=== PATIENT | male | born 1935 | race Caucasian/White ===

== ENCOUNTER 2021-12-08 02:19 | Inpatient (IN) | payer OTHER ==
[~2021-12-08] VITALS: Ht 172.7 cm; Wt 78.5 kg
[~2021-12-08 02:19] MED LIST: ALFU10TA10 PO; AMLO5TAB4 PO; LOSA100T3 PO; LOVA40TA75 PO
--- NOTE | 2021-12-08 02:23 | NUR ---
Bhakti olmos in [facility] - 12/08/21 at 0427 by SDEDPR ARCHIE Lopez at bedside examining patient.
[2021-12-08] MEDS ORDERED: NITROGLYCERIN 1 INCH (GM) OINT. TP ONE (02:24)
[2021-12-08] MEDS ORDERED: MORPHINE 4 MG INJ. 4 MG/ML VIAL IVP ONE (02:24)
[2021-12-08 02:26] VITALS: BP_SYST 153
--- NOTE | 2021-12-08 02:29 | NUR ---
Placed in room 5 . Placed on monitoring coordinator, blood pressure machine and pulse oximeter. To gown for exam. Side rails up.
[2021-12-08] MEDS ORDERED: ENOXAPARIN SODIUM 80 MG/0.8 ML SYRINGE SUBCUT ONE (02:30)
--- NOTE | 2021-12-08 02:30 | NUR ---
NAM AT BEDSIDE, DR DEL CASTILLO IN ROOM FOR EXAM
--- NOTE | 2021-12-08 02:30 | NUR ---
ER at bedside examining patient.
--- NOTE | 2021-12-08 02:32 | NUR ---
PT WALKS IN WITH WITH C/O ANTERIOR CHEST WALL PAIN FOR 2 DAYS, STATES IT FEELS LIKE ACID REFUX, POOJA HAD IT BEFORE. DENIES ANY SOB. NO FEVERS/CHILLS. SKIN W/D/I. RESP EVEN AND UNLABORED, ON RA @98%. ONLY HISTORY IS HTN AND TAKES MEDS PRESCRIBED. PT SPEAKING IN FULL CLEAR SENTENCES.
[2021-12-08] MEDS ORDERED: ASPIRIN 325 MG TABLET PO ONE (03:00)
[2021-12-08] MEDS ORDERED: ASPIRIN 325 MG TABLET ONE (03:01)
--- NOTE | 2021-12-08 03:02 | NUR ---
CXR AT BEDSIDE.
[2021-12-08 03:34] LABS: BASOPHILS # (AUTO) 0.1 K/uL (0.0-0.2); BASOPHILS % (AUTO) 1.9 % (0.0-2.0); EOSINOPHILS # (AUTO) 0.2 K/uL (0.0-0.4); EOSINOPHILS % (AUTO) 2.5 % (0.0-4.0); HEMOGLOBIN 13.3 g/dL (14.0-18.0); LYMPHOCYTES # (AUTO) 1.5 K/uL (1.0-5.5); LYMPHOCYTES % (AUTO) 20.1 % (20.5-51.5); MEAN CORPUSCULAR HEMOGLOBIN 30 pg (27-31); MEAN CORPUSCULAR HGB CONC 33 % (32-36); MEAN CORPUSCULAR VOLUME 89 fL (79.0-98.0); MONOCYTES # (AUTO) 0.9 K/uL (0.0-1.0); MONOCYTES % (AUTO) 12.3 % (1.7-9.3); NEUTROPHILS # (AUTO) 4.7 K/uL (1.8-7.7); NEUTROPHILS % (AUTO) 63.2 % (40.0-70.0); PLATELET COUNT (AUTO) 198 K/uL (130-430); RED BLOOD CELL COUNT(AUTO) 4.49 MIL/uL (4.2-6.2); RED CELL DISTRIBUTION WIDTH 13.7 % (9.0-15.0); WHITE BLOOD COUNT (AUTO) 7.5 K/uL (4.8-10.8)
[2021-12-08 03:58] LABS: ANION GAP 5 (5-15); CALCIUM 8.1 mg/dL (8.4-11.0); CHLORIDE 105 mmol/L (98-107); CREATININE 1.05 mg/dL (0.55-1.30); GLUCOSE 160 mg/dL (70-99); POTASSIUM 3.7 mmol/L (3.5-5.1); SODIUM SERUM 136 mmol/L (136-145); UREA NITROGEN, BLOOD 17 mg/dL (8-21)
[2021-12-08 04:06] LABS: ALANINE AMINOTRANSFERASE 20 U/L (12-78); ALBUMIN 3.6 g/dL (3.4-4.8); ASPARTATE AMINOTRANSFERASE 17 U/L (10-37); TOTAL BILIRUBIN 0.6 mg/dL (0.0-1.0)
--- NOTE | 2021-12-08 04:23 | NUR ---
COVID SWAB COLLECTED AND SENT TO LAB.
--- NOTE | 2021-12-08 04:23 | NUR ---
PT REPORTS FEEING BETTER, PRESSURE PAIN 2/10 AT THIS TIME. VSS, ON RA @97%.
--- NOTE | 2021-12-08 04:24 | NUR ---
Admit bed requested Patient will be admitted to care of . Admitted to TELE unit. Diagnosis CHEST PAIN Inpatient (Yes or No) YES Observation (Yes or No) NO Orientation concerns or request close to nursing station (Yes or No) NO Covid Status PENDING On vent or bipap NO Isolation requirements NO Needs a sitter NO From Home (Yes or if No enter name of facility) YES Requires Dialysis (Yes or No) NO Med Rec Completed (Yes of No) PENDING
--- NOTE | 2021-12-08 04:24 | NUR ---
ADMITTING ORDERS RECEIVED FROM DR Brenda FIGUEREDO
--- NOTE | 2021-12-08 04:30 | NUR ---
Medication reconciliation completed with information provided by PATIENT. Any prior medication reconciliation on file was reviewed and corrected.
--- NOTE | 2021-12-08 06:12 | NUR ---
DR GAMING AT BEDSIDE.
[2021-12-08] MEDS ORDERED: ONDANSETRON HCL 4 MG/2 ML VIAL IVP PRN (06:15)
[2021-12-08] MEDS ORDERED: NALOXONE HCL 0.4 MG/ML AMP (NARCAN) IVP PRN ×2 (06:15)
[2021-12-08] MEDS ORDERED: MORPHINE 2 MG/ML INJ. SYRINGE IVP PRN ×2 (06:15)
[2021-12-08] MEDS ORDERED: DOCUSATE SODIUM 100 MG CAPSULE PO PRN (06:15)
[2021-12-08] MEDS ORDERED: ZOLPIDEM TARTRATE 5 MG TABLET PO PRN (06:15)
[2021-12-08] MEDS ORDERED: LORazepam 2 MG/ML VIAL IVP PRN (06:15)
[2021-12-08] MEDS ORDERED: MAGNESIUM SULFATE 50 ML IV PRN (06:15)
[2021-12-08] MEDS ORDERED: MUPIROCIN 2% TOPICAL OINTMENT 22 GM NS PRN (06:15)
[2021-12-08] MEDS ORDERED: POTASSIUM CHLORIDE 20 MEQ TAB.PRT.SR PO PRN (06:15)
[2021-12-08] MEDS ORDERED: ACETAMINOPHEN 325 MG TABLET PO PRN (06:15)
--- NOTE | 2021-12-08 06:30 | NUR ---
DIETARY WAS CALLED FOR PT'S CARDIAC DIET FOR AM BREAKFAST.
[2021-12-08] MEDS: METOPROLOL TARTRATE 25 MG TABLET PO SCH ×3 (06:44→20:18)
[2021-12-08] MEDS: PANTOPRAZOLE SODIUM 40 MG TAB PO SCH ×2 (06:44→08:52)
--- NOTE | 2021-12-08 06:44 | NUR ---
NO ACUTE CHANGES IN CONDITION, PT WITH EYES CLOSED, EASILY AROUSABLE TO VOICE. AM MEDS GIVEN ORDERED. PT TEACHING DONE AND PLAN OF CARE UPDATED.
--- NOTE | 2021-12-08 07:02 | NUR ---
REPORT GIVEN TO NATHANIEL MARTIN,PT STABLE, UPDATED ON STATUS AND PLAN OF CARE.
--- NOTE | 2021-12-08 07:15 | NUR ---
Pt in bed resting in acute distress. denies any CP or SOB AOx4 GCS 15. Will continue to monitor pt
--- NOTE | 2021-12-08 07:30 | NUR ---
Cardiac breakfast tray provided to pt.
--- NOTE | 2021-12-08 08:13 | NUR ---
Pt ate 25% of breakfast tray provided. Pt im bed resting. Will continue to monitor
[2021-12-08] MEDS: ASPIRIN 81 MG TABLET(ECOTRIN) PO SCH (08:48)
[2021-12-08] MEDS: amLODIPine BESYLATE 5 MG TABLET PO SCH (08:51)
--- NOTE | 2021-12-08 08:59 | NUR ---
Critical troponin lab value reported by lab. Attending timber selector called and lab reported. Plan to come see pt during rounding.
[2021-12-08] MEDS ORDERED: LOVASTATIN 20 MG TABLET PO SCH (09:00)
[2021-12-08] MEDS ORDERED: ENOXAPARIN SODIUM 40 MG/0.4 ML SYRINGE SUBCUT SCH (09:00)
[2021-12-08] MEDS: LOSARTAN POTASSIUM 50 MG TABLET (COZAAR) PO SCH (09:00)
[2021-12-08] MEDS: ATORVASTATIN 10 MG TABLET PO SCH (09:14)
--- NOTE | 2021-12-08 10:10 | NUR ---
Attending adult basic studies teacher at the bedside to assess pt.
[2021-12-08] MEDS ORDERED: *LOVENOX 1MG/KG Q12H/PHARMACY XX ONE (10:15)
[2021-12-08] MEDS ORDERED: ENOXAPARIN SODIUM 40 MG/0.4 ML SYRINGE SUBCUT ONE (10:30)
--- NOTE | 2021-12-08 10:46 | NUR ---
ECHO completed at the bedside by tech
--- NOTE | 2021-12-08 13:29 | NUR ---
Ordered food tray: Cardiac
[2021-12-08 13:45] VITALS: BP_SYST 123
--- NOTE | 2021-12-08 13:45 | NUR ---
Pt transported to bed 119B by ED RN accompanied by ED SUPERVISOR [employer]ETARY [employer]ICE in no acute distress Aox4 GCS 15 on monitor with IV in place on stretcher. Bedside report given to Judy MARTIN
--- NOTE | 2021-12-08 13:49 | NUR ---
Admission Note Received patient from ER with diagnosis of Chest pain. Bedside report received from Max. Pt was transferred from [facility] to bed via lateral transfer. Pt is awake, alert and oriented x4, denies any pain at this time. Eating his lunch. Initial Plan of Care discussed-patient verbalized understanding. Family not around at this time. Oriented to room, call light, pain management and safety. Placed pt on tele monitor shows NSR. Bed to lowest position, side rails up, call light within reach, and bed locked. Assuming care for pt.
--- NOTE | 2021-12-08 14:37 | NUR ---
DISCH [employer] MAN SPOKE WITH BLAKE BALL ASSEMBLER AT [employer] AND FAXED INFORMATION RE PATIENT. AWAITING FOR A CALL RE BED ASSIGNMENT.
--- NOTE | 2021-12-08 15:10 | NUR ---
CM: 1200 pm: received transfer to higher level of care order from dr. Garcia: to transfer pt to [facility] for cardiac angiogram. He scheduled for tomorrow at 5 pm. I confirmed the schedule with [employer]/solder making laborer # [phone]. The referral package and order faxed to admitting dept fax # [phone], tel # [phone] by FN/RN.
[2021-12-08 16:02] VITALS: BP_SYST 137
--- NOTE | 2021-12-08 16:02 | NUR ---
follow up call Called back Admitting and spoke with Pam. Stated pt is registered and will follow up in am for a room number.
[2021-12-08] MEDS ORDERED: ALFUZOSIN HCL PO SCH (18:00)
--- NOTE | 2021-12-08 18:09 | NUR ---
CRITICAL LAB: Bhupendra from Laboratory called with critical lab value troponin >[id number]. Medical record number and patient name verified. Read back of values done. notified of value. No new orders given at this time. Will continue to monitor.
--- NOTE | 2021-12-08 18:18 | NUR ---
Paged Dr. Del Toro to inform with critical trop >2500. Awaiting for call back.
[2021-12-08 20:00] VITALS: BP_SYST 126
[2021-12-08] MEDS: ENOXAPARIN SODIUM 80 MG/0.8 ML SYRINGE SUBCUT SCH (20:20)
[2021-12-09] VITALS: BP_SYST 124
--- NOTE | 2021-12-09 07:00 | NUR ---
PT SLEPT THROUGH THE NIGHT. PT DID NOT CO PAIN OR DISCOMFORT. PT TO BE TRANSFER OUT TODAY. WILL MAKE DAY RN AWARE.
[2021-12-09 08:01] LABS: ANION GAP 6 (5-15); CALCIUM 7.5 mg/dL (8.4-11.0); CHLORIDE 105 mmol/L (98-107); CREATININE 1.06 mg/dL (0.55-1.30); GLUCOSE 129 mg/dL (70-99); POTASSIUM 4.4 mmol/L (3.5-5.1); SODIUM SERUM 136 mmol/L (136-145); UREA NITROGEN, BLOOD 18 mg/dL (8-21)
[2021-12-09 08:11] LABS: BASOPHILS # (AUTO) 0.1 K/uL (0.0-0.2); BASOPHILS % (AUTO) 0.5 % (0.0-2.0); EOSINOPHILS # (AUTO) 0.2 K/uL (0.0-0.4); EOSINOPHILS % (AUTO) 1.9 % (0.0-4.0); HEMATOCRIT 41.8 % (36-54); LYMPHOCYTES % (AUTO) 20.5 % (20.5-51.5); MEAN CORPUSCULAR HEMOGLOBIN 30 pg (27-31); MEAN CORPUSCULAR HGB CONC 34 % (32-36); MEAN CORPUSCULAR VOLUME 89 fL (79.0-98.0); MONOCYTES # (AUTO) 1.4 K/uL (0.0-1.0); MONOCYTES % (AUTO) 14.3 % (1.7-9.3); NEUTROPHILS # (AUTO) 6.2 K/uL (1.8-7.7); NEUTROPHILS % (AUTO) 62.8 % (40.0-70.0); PLATELET COUNT (AUTO) 212 K/uL (130-430); RED CELL DISTRIBUTION WIDTH 13.5 % (9.0-15.0)
[2021-12-09 08:16] LABS: ALANINE AMINOTRANSFERASE 29 U/L (12-78); ALBUMIN 3.5 g/dL (3.4-4.8); ASPARTATE AMINOTRANSFERASE 80 U/L (10-37); LIPASE 63 U/L (73-393); THYROID STIMULATING HORMONE 1.97 uIu/mL (0.36-3.74)
[2021-12-09 08:29] LABS: WHITE BLOOD COUNT (AUTO) 9.8 K/uL (4.8-10.8)
[2021-12-09] MEDS: ASPIRIN 81 MG TABLET(ECOTRIN) PO SCH (09:00)
[2021-12-09] MEDS: amLODIPine BESYLATE 5 MG TABLET PO SCH (09:00)
[2021-12-09] MEDS: ENOXAPARIN SODIUM 80 MG/0.8 ML SYRINGE SUBCUT SCH ×2 (09:00→14:08)
[2021-12-09] MEDS: LOSARTAN POTASSIUM 50 MG TABLET (COZAAR) PO SCH (09:00)
[2021-12-09] MEDS: METOPROLOL TARTRATE 25 MG TABLET PO SCH (09:00)
--- NOTE | 2021-12-09 09:03 | NUR ---
ha and POLO held this am in preparation for Cardiac Cath today at 1700
[2021-12-09] MEDS: PANTOPRAZOLE SODIUM 40 MG TAB PO SCH (09:10)
[2021-12-09] MEDS: ATORVASTATIN 10 MG TABLET PO SCH (09:10)
[2021-12-09 10:25] LABS: CHOLESTEROL 183 mg/dL (<200); HDL CHOLESTEROL 50 mg/dL (>45); LDL CHOLESTEROL 109 mg/dL (<100); TRIGLYCERIDES 115 mg/dL (30-150)
[2021-12-09 11:40] VITALS: BP_SYST 128
[2021-12-09 12:03] VITALS: BP_SYST 117
--- NOTE | 2021-12-09 13:45 | NUR ---
REPORT CALLED TO MARIO LYNN [phone] AT [facility] PATIENT WILL GO TO [id number] [facility]. ALL QUESTIONS ANSWERED. MARIO LYNN AWARE AND WILL RECEIVE PATIENT UPON ARRIVAL TO HOSPITAL.
--- NOTE | 2021-12-09 13:56 | NUR ---
Discharge Planning: MARYELLENP spoke with Nelda Rothman#[phone] at [facility] liaison she helped arrange transport to [facility] for cardiac lab with [facility] 2:30pm ALS contact Lavonne [phone] Op1#[id number].
--- NOTE | 2021-12-09 14:07 | NUR ---
PER DR. DIEGO GIVE AM LOVENOX DOSE NOW, MEDICATIONS PULLED AND GIVEN PER .
--- NOTE | 2021-12-09 15:07 | NUR ---
D/C Patient to [facility], bedside report given to [facility] (Kamini) Patient given medication reconciliation form and D/C instructions. Exit Care provided. Patient verbalized understanding. MD discussed with patient the results and treatment provided. Ambulatory with steady gait for discharge to [facility]. Patient in stable condition,Patient educated on pain management. All belongings sent with patient.
== END 2021-12-09 15:07 | disposition short-term general hospital (02) | DRG 205 ==
LOC: SED 02:19 → STU 04:25
PROVIDERS: ADMIT General Practice; ATTEND General Practice
DX: M94.0 Chondrocostal junction syndrome [Tietze] (principal); I21.4 Non-ST elevation (NSTEMI) myocardial infarction; K21.9 Gastro-esophageal reflux disease without esophagitis; I10 Essential (primary) hypertension; I20.9 Angina pectoris, unspecified; E78.5 Hyperlipidemia, unspecified; Z20.822 Contact with and (suspected) exposure to COVID-19; Z79.899 Other long term (current) drug therapy
CPT/HCPCS: 36415; 71045; 80053; 80061; 83036; 83690; 83735; 83880; 84443; 84484; 85025; 85379; 93005; 93306; 96372; 96374; 99285; G0378; J1650; J2270

== ENCOUNTER 2023-08-20 07:03 | Emergency (ER) | payer OTHER ==
[~2023-08-20] VITALS: Ht 170.2 cm; Wt 74.8 kg
[~2023-08-20 07:03] MED LIST changes: +AMOX1TAB14 PO; +EMLA TP; +LOSA-415 PO; -LOSA100T3 PO; +TAMS-11 PO
[2023-08-20 07:15] VITALS: BP_SYST 167; PULSE 53; RESP 18; TEMP 97.1; O2SAT 97
[2023-08-20] MEDS ORDERED: BACITRACIN 1 GM OINT TP ONE (08:00)
[2023-08-20] MEDS ORDERED: DIPHTH,PERTUSS(ACELL),TET VAC 0.5 ML VIAL (Tdap) I.M. ONE ×2 (08:00→10:18)
[2023-08-20 08:36] LABS: BASOPHILS # (AUTO) 0.1 K/uL (0.0-0.2); BASOPHILS % (AUTO) 0.5 % (0.0-2.0); EOSINOPHILS # (AUTO) 0.2 K/uL (0.0-0.4); EOSINOPHILS % (AUTO) 1.7 % (0.0-4.0); HEMATOCRIT 40.9 % (36-54); HEMOGLOBIN 13.9 g/dL (14.0-18.0); LYMPHOCYTES # (AUTO) 1.6 K/uL (1.0-5.5); LYMPHOCYTES % (AUTO) 14.5 % (20.5-51.5); MEAN CORPUSCULAR HEMOGLOBIN 31 pg (27-31); MEAN CORPUSCULAR HGB CONC 34 % (32-36); MEAN CORPUSCULAR VOLUME 92 fL (79.0-98.0); MONOCYTES # (AUTO) 1.4 K/uL (0.0-1.0); MONOCYTES % (AUTO) 12.3 % (1.7-9.3); PLATELET COUNT (AUTO) 237 K/uL (130-430); RED BLOOD CELL COUNT(AUTO) 4.46 MIL/uL (4.2-6.2); RED CELL DISTRIBUTION WIDTH 13.5 % (9.0-15.0); WHITE BLOOD COUNT (AUTO) 11.3 K/uL (4.8-10.8)
[2023-08-20 08:41] LABS: ANION GAP 10 (5-15); CALCIUM 9.4 mg/dL (8.4-11.0); CARBON DIOXIDE 27 mmol/L (23-29); CHLORIDE 107 mmol/L (98-107); CREATININE 1.08 mg/dL (0.55-1.30); GLUCOSE 141 mg/dL (74-106); POTASSIUM 4.5 mmol/L (3.5-5.1); SODIUM SERUM 144 mmol/L (136-145); UREA NITROGEN, BLOOD 22 mg/dL (8-21)
[2023-08-20 08:42] LABS: INR 1.1 (0.80-1.20); PROTHROMBIN TIME 11.7 SECS (9.5-12.5)
[2023-08-20 08:55] LABS: ALANINE AMINOTRANSFERASE 21 U/L (12-78); ALBUMIN 3.5 g/dL (3.4-4.8); ASPARTATE AMINOTRANSFERASE 17 U/L (10-37); BILIRUBIN,DIRECT 0.3 mg/dL (0.0-0.3); CREATINE KINASE, TOTAL 81 U/L (39-308); FREE T4 (FREE THYROXINE) 1.2 ng/dL (0.6-1.6); THYROID STIMULATING HORMONE 2.16 uIu/mL (0.34-4.82); TOTAL BILIRUBIN 1.1 mg/dL (0.0-1.0); TOTAL PROTEIN, SERUM 6.6 g/dL (6.4-8.3)
[2023-08-20 10:07] LABS: BILIRUBIN,URINE NEGATIVE (NEGATIVE); BLOOD, URINE 1+ (NEGATIVE); CLARITY/URINE CLOUDY (CLEAR); COLOR,URINE YELLOW (YELLOW); GLUCOSE,URINE NEGATIVE (NEGATIVE); KETONES,URINE NEGATIVE (NEGATIVE); LEUKOCYTE ESTERASE ,URINE 2+ (NEGATIVE); NITRITE, URINE POSITIVE (NEGATIVE); PROTEIN URINE 2+ (NEGATIVE); UROBILINOGEN,URINE 0.2 (0.2-1.0)
[2023-08-20 10:15] LABS: BACTERIA,URINE None Seen /HPF (None Seen); RBC,URINE 0-3 /HPF (0-3); WBC,URINE 20-50 /HPF (0-3)
[2023-08-20 10:16] LABS: CALCIUM OXALATE CRYSTALS,UR None Seen /HPF (None Seen); CALCIUM PHOSPHATE CRYSTALS,UR None Seen /HPF (None Seen); COARSE GRANULAR CASTS,URINE None Seen /LPF (None Seen); FINE GRANULAR CASTS,URINE None Seen /LPF (None Seen); HYALINE CASTS, URINE None Seen /LPF (None Seen); MUCUS,URINE None Seen /LPF (None Seen); OTHER CASTS, URINE None Seen /LPF (None Seen); OTHER CRYSTALS,URINE None Seen /HPF (None Seen); TRICHOMONAS,URINE None Seen /HPF (None Seen); TRIPLE PHOSPHATE CRYSTAL,UR None Seen /HPF (None Seen); URIC ACID CRYSTALS,URINE None Seen /HPF (None Seen); URINE AMORPHOUS PHOSPHATES None Seen /HPF (None Seen); URINE AMORPHOUS URATE None Seen /HPF (None Seen); WAXY CASTS,URINE None Seen /LPF (None Seen); YEAST,URINE None Seen /HPF (None Seen)
[2023-08-20 10:54] VITALS: BP_SYST 188; PULSE 78; RESP 20; TEMP 97; O2SAT 97
== END 2023-08-20 10:35 | disposition home or self-care (01) ==
LOC: SED 07:03
DX: S56.812A Strain of other muscles, fascia and tendons at forearm level, left arm, initial encounter (principal); I10 Essential (primary) hypertension; E78.5 Hyperlipidemia, unspecified; Z79.899 Other long term (current) drug therapy; W01.0XXA Fall on same level from slipping, tripping and stumbling without subsequent striking against object, initial encounter; Y93.89 Activity, other specified; Y92.89 Other specified places as the place of occurrence of the external cause; Y99.8 Other external cause status
CPT/HCPCS: 36415; 73090; 80048; 80076; 81000; 81001; 81015; 82550; 83605; 84439; 84443; 84484; 85025; 85610-TC; 85730-TC; 87086; 90715; 93005; 99285

== ENCOUNTER 2024-05-20 17:02 | Inpatient (IN) | payer OTHER ==
[~2024-05-20] VITALS: Ht 165.1 cm; Wt 75.7 kg
[~2024-05-20 17:02] MED LIST changes: -ALFU10TA10 PO; +ALFU10TA47 PO
[2024-05-20 17:03] VITALS: BP_SYST 191; PULSE 102; RESP 20; TEMP 97.4; O2SAT 96
[2024-05-20] MEDS ORDERED: METOPROLOL TARTRATE 25 MG TABLET ONE (17:31)
[2024-05-20 17:41] LABS: BASOPHILS # (AUTO) 0.1 K/uL (0.0-0.2); BASOPHILS % (AUTO) 0.5 % (0.0-2.0); EOSINOPHILS # (AUTO) 0.1 K/uL (0.0-0.4); HEMATOCRIT 38.6 % (36-54); HEMOGLOBIN 13.4 g/dL (14.0-18.0); LYMPHOCYTES # (AUTO) 1.6 K/uL (1.0-5.5); LYMPHOCYTES % (AUTO) 12.8 % (20.5-51.5); MEAN CORPUSCULAR HEMOGLOBIN 31 pg (27-31); MEAN CORPUSCULAR HGB CONC 35 % (32-36); MEAN CORPUSCULAR VOLUME 89 fL (79.0-98.0); MONOCYTES # (AUTO) 1.3 K/uL (0.0-1.0); MONOCYTES % (AUTO) 10.9 % (1.7-9.3); NEUTROPHILS # (AUTO) 9.2 K/uL (1.8-7.7); NEUTROPHILS % (AUTO) 74.8 % (40.0-70.0); PLATELET COUNT (AUTO) 224 K/uL (130-430); RED BLOOD CELL COUNT(AUTO) 4.32 MIL/uL (4.2-6.2); RED CELL DISTRIBUTION WIDTH 13.8 % (9.0-15.0); WHITE BLOOD COUNT (AUTO) 12.3 K/uL (4.8-10.8)
[2024-05-20] MEDS: METOPROLOL SUCCINATE 25 MG TAB.SR.24H (TOPROL XL) PO ONE (17:41)
[2024-05-20] MEDS: PANTOPRAZOLE SODIUM 40 MG TAB PO ONE (17:41)
[2024-05-20 17:50] LABS: ALANINE AMINOTRANSFERASE 14 U/L (12-78); ALBUMIN 3.4 g/dL (3.4-4.8); ANION GAP 12 (5-15); ASPARTATE AMINOTRANSFERASE 19 U/L (10-37); CALCIUM 8.9 mg/dL (8.4-11.0); CARBON DIOXIDE 25 mmol/L (23-29); CHLORIDE 105 mmol/L (98-107); GLUCOSE 170 mg/dL (74-106); POTASSIUM 3.6 mmol/L (3.5-5.1); SODIUM SERUM 142 mmol/L (136-145); TOTAL BILIRUBIN 1.1 mg/dL (0.0-1.0); TOTAL PROTEIN, SERUM 6.3 g/dL (6.4-8.3); UREA NITROGEN, BLOOD 25 mg/dL (8-21)
[2024-05-20 18:10] LABS: BILIRUBIN,URINE NEGATIVE (NEGATIVE); CLARITY/URINE CLOUDY (CLEAR); COLOR,URINE YELLOW (YELLOW); GLUCOSE,URINE NEGATIVE (NEGATIVE); KETONES,URINE NEGATIVE (NEGATIVE); LEUKOCYTE ESTERASE ,URINE 2+ (NEGATIVE); NITRITE, URINE POSITIVE (NEGATIVE); PH,URINE 5.5 (5.0-8.0); PROTEIN URINE 2+ (NEGATIVE); UROBILINOGEN,URINE 0.2 (0.2-1.0)
[2024-05-20 18:28] LABS: BLOOD, URINE TRACE (NEGATIVE)
[2024-05-20 19:32] LABS: BACTERIA,URINE FEW /HPF (None Seen); MUCUS,URINE None Seen /LPF (None Seen); WBC,URINE >100 /HPF (0-3)
[2024-05-20] MEDS: ACETAMINOPHEN 325 MG TABLET PO ONE (20:14)
[2024-05-20] MEDS: NACL 0.9% 1,000 ML IV ONE ×2 (20:47→21:38)
[2024-05-20] MEDS ORDERED: PRO40 PO (21:22)
[2024-05-20] MEDS ORDERED: LOSA50TA28 PO (21:22)
[2024-05-20] MEDS ORDERED: CLOP75TA2 PO (21:22)
[2024-05-20] MEDS ORDERED: FINA5TAB11 PO (21:22)
[2024-05-20] MEDS ORDERED: ATOR40TA68 PO (21:26)
[2024-05-20] MEDS ORDERED: ASPI81CA PO (21:26)
[2024-05-20] MEDS ORDERED: cefTRIAXone 1 GM VIAL IV ONE (21:30)
[2024-05-20] MEDS ORDERED: cefTRIAXone 1 GM IVPB PREMIX 50 ML IV ONE (21:30)
[2024-05-20] MEDS: cefTRIAXone 1 GM IVPB PREMIX 50 ML IV ONE (21:41)
[2024-05-21] VITALS (7 sets, daily range): BP systolic 129–210; PULSE 78–130; RESP 16–20; TEMP 98.1–98.6; O2SAT 94–97
[2024-05-21] MEDS ORDERED: ONDANSETRON HCL 4 MG/2 ML VIAL IM PRN (00:30)
[2024-05-21] MEDS: hydrALAZINE HCL 20 MG/ML VIAL IVP PRN (00:37)
[2024-05-21] MEDS: ONDANSETRON HCL 4 MG/2 ML VIAL IVP PRN (00:37)
[2024-05-21] MEDS: NACL 0.9% 1,000 ML IV SCH (01:32)
[2024-05-21 06:34] LABS: HEMATOCRIT 45.2 % (36-54); HEMOGLOBIN 15.3 g/dL (14.0-18.0); MEAN CORPUSCULAR HEMOGLOBIN 31 pg (27-31); MEAN CORPUSCULAR HGB CONC 34 % (32-36); MEAN CORPUSCULAR VOLUME 90 fL (79.0-98.0); PLATELET COUNT (AUTO) 266 K/uL (130-430); RED BLOOD CELL COUNT(AUTO) 5.03 MIL/uL (4.2-6.2); RED CELL DISTRIBUTION WIDTH 13.6 % (9.0-15.0); WHITE BLOOD COUNT (AUTO) 21.6 K/uL (4.8-10.8)
[2024-05-21 07:03] LABS: ALANINE AMINOTRANSFERASE 26 U/L (12-78); ALBUMIN 3.8 g/dL (3.4-4.8); ANION GAP 14 (5-15); ASPARTATE AMINOTRANSFERASE 28 U/L (10-37); CALCIUM 9.3 mg/dL (8.4-11.0); CARBON DIOXIDE 26 mmol/L (23-29); CHLORIDE 103 mmol/L (98-107); CREATININE 1.25 mg/dL (0.55-1.30); GLUCOSE 185 mg/dL (74-106); POTASSIUM 3.1 mmol/L (3.5-5.1); SODIUM SERUM 143 mmol/L (136-145); TOTAL BILIRUBIN 1.3 mg/dL (0.0-1.0); UREA NITROGEN, BLOOD 21 mg/dL (8-21)
[2024-05-21] MEDS ORDERED: DEXTROSE 50%-WATER 50 ML DISP.SYRIN IVP PRN (09:30)
[2024-05-21] MEDS: KCL 20 mEq in 100 mL (PREMIX) 100 ML IV SCH (10:38)
[2024-05-21 11:48] LABS: ATYPICAL LYMPHOCYTES % 2 % (0-0); BAND % (MANUAL) 7 % (0-6); BASOPHILS % (MANUAL) 0 % (0-2); EOSINOPHILS % (MANUAL) 0 % (0-7); LYMPHOCYTES % (MANUAL) 4 % (20-46); METAMYELOCYTES % 1 % (0-0); MONOCYTES % (MANUAL) 3 % (0-11)
[2024-05-21 11:49] LABS: PLATELET ESTIMATE ADEQUATE (ADEQUATE)
[2024-05-21] MEDS: NACL 0.9% 1,000 ML IV ONE (12:45)
[2024-05-21] MEDS: PANTOPRAZOLE SODIUM 40 MG TAB PO ONE (12:46)
[2024-05-21] MEDS: ASPIRIN 81 MG TAB.CHEW PO ONE (12:47)
[2024-05-21] MEDS: TAMSULOSIN HCL 0.4 MG CAP PO ONE (12:47)
[2024-05-21] MEDS: LOSARTAN POTASSIUM 50 MG TABLET (COZAAR) PO ONE (12:47)
[2024-05-21] MEDS: CLOPIDOGREL BISULFATE 75 MG TABLET PO ONE (12:47)
[2024-05-21] MEDS: ATORVASTATIN 20 MG TABLET PO ONE (12:48)
[2024-05-21] MEDS: FINASTERIDE 5 MG TABLET (PROSCAR) PO ONE (12:57)
[2024-05-21] MEDS: INSULIN LISPRO SLIDING SCALE 100 UNITS/ML, 3 ML VIAL (humaLOG) SUBCUT PRN (13:12)
[2024-05-22] VITALS (9 sets, daily range): BP systolic 121–186; PULSE 78–114; RESP 18–24; TEMP 97–98.2; O2SAT 98–100
[2024-05-22] MEDS: METOPROLOL TARTRATE 5 MG/5 ML VIAL IVP PRN (01:07)
[2024-05-22 08:31] LABS: BASOPHILS % (AUTO) 0.3 % (0.0-2.0); EOSINOPHILS % (AUTO) 0.3 % (0.0-4.0); HEMATOCRIT 42.6 % (36-54); LYMPHOCYTES # (AUTO) 1.5 K/uL (1.0-5.5); LYMPHOCYTES % (AUTO) 9.7 % (20.5-51.5); MEAN CORPUSCULAR HEMOGLOBIN 30 pg (27-31); MEAN CORPUSCULAR HGB CONC 33 % (32-36); MEAN CORPUSCULAR VOLUME 92 fL (79.0-98.0); MONOCYTES # (AUTO) 1.9 K/uL (0.0-1.0); MONOCYTES % (AUTO) 12.1 % (1.7-9.3); NEUTROPHILS % (AUTO) 77.6 % (40.0-70.0); PLATELET COUNT (AUTO) 256 K/uL (130-430); RED BLOOD CELL COUNT(AUTO) 4.65 MIL/uL (4.2-6.2); RED CELL DISTRIBUTION WIDTH 14.1 % (9.0-15.0); WHITE BLOOD COUNT (AUTO) 15.5 K/uL (4.8-10.8)
[2024-05-22 08:41] LABS: ALANINE AMINOTRANSFERASE 22 U/L (12-78); ALBUMIN 3.3 g/dL (3.4-4.8); ANION GAP 11 (5-15); ASPARTATE AMINOTRANSFERASE 25 U/L (10-37); CALCIUM 8.5 mg/dL (8.4-11.0); CARBON DIOXIDE 24 mmol/L (23-29); CHLORIDE 112 mmol/L (98-107); CREATININE 1.39 mg/dL (0.55-1.30); GLUCOSE 139 mg/dL (74-106); POTASSIUM 3.7 mmol/L (3.5-5.1); SODIUM SERUM 147 mmol/L (136-145); TOTAL PROTEIN, SERUM 6.1 g/dL (6.4-8.3); UREA NITROGEN, BLOOD 20 mg/dL (8-21)
[2024-05-22] MEDS ORDERED: HEPARIN SODIUM,PORCINE 5,000 UNITS/ML VIAL SUBCUT SCH (09:00)
[2024-05-22] MEDS: ASPIRIN 81 MG TAB.CHEW PO SCH (09:30)
[2024-05-22] MEDS: LOSARTAN POTASSIUM 50 MG TABLET (COZAAR) PO SCH (09:30)
[2024-05-22] MEDS: CLOPIDOGREL BISULFATE 75 MG TABLET PO SCH (09:31)
[2024-05-22] MEDS: ATORVASTATIN 20 MG TABLET PO SCH (09:31)
[2024-05-22] MEDS: PANTOPRAZOLE SODIUM 40 MG TAB PO SCH (09:31)
[2024-05-22] MEDS: TAMSULOSIN HCL 0.4 MG CAP PO SCH (09:32)
[2024-05-22] MEDS: FINASTERIDE 5 MG TABLET (PROSCAR) PO SCH (09:47)
[2024-05-22] MEDS: FUROSEMIDE 20 MG/2 ML VIAL ONE (10:41)
[2024-05-22] MEDS: HEPARIN SODIUM,PORCINE 5,000 UNITS/ML VIAL ONE (10:41)
[2024-05-22] MEDS: FUROSEMIDE 20 MG/2 ML VIAL IVP SCH (10:43)
[2024-05-22] MEDS: HEPARIN SODIUM,PORCINE 5,000 UNITS/ML VIAL SUBCUT SCH (10:44)
[2024-05-22] MEDS: METOPROLOL TARTRATE 25 MG TABLET PO ONE (13:25)
[2024-05-22] MEDS ORDERED: ONDANSETRON HCL 4 MG/2 ML VIAL IVP PRN (16:00)
[2024-05-22] MEDS ORDERED: HYDROcodone/ACETAMIN 10-325 MG TAB PO PRN (16:00)
[2024-05-22] MEDS ORDERED: LORazepam 2 MG/ML VIAL IVP PRN (16:00)
[2024-05-22] MEDS: ISOSORBIDE MONONITRATE 30 MG TAB.ER.24H PO ONE (17:29)
[2024-05-22] MEDS: amLODIPine BESYLATE 5 MG TABLET PO ONE (17:30)
[2024-05-22] MEDS: ALBUTEROL SULFATE 0.083% 2.5 MG/3 ML VIAL.NEB INH PRN (18:37)
[2024-05-22] MEDS: IPRATROPIUM BROM 0.5 MG/2.5 ML VIAL.NEB (ATROVENT) INH PRN (18:38)
[2024-05-22] MEDS: METOPROLOL TARTRATE 25 MG TABLET PO SCH (21:39)
[2024-05-23] VITALS (8 sets, daily range): BP systolic 108–191; PULSE 58–74; RESP 16–22; TEMP 97–98.1; O2SAT 93–100
[2024-05-23 06:59] LABS: BASOPHILS % (AUTO) 0.3 % (0.0-2.0); EOSINOPHILS # (AUTO) 0.1 K/uL (0.0-0.4); EOSINOPHILS % (AUTO) 0.9 % (0.0-4.0); HEMATOCRIT 38.4 % (36-54); HEMOGLOBIN 12.9 g/dL (14.0-18.0); LYMPHOCYTES # (AUTO) 1.7 K/uL (1.0-5.5); LYMPHOCYTES % (AUTO) 11.1 % (20.5-51.5); MEAN CORPUSCULAR HEMOGLOBIN 31 pg (27-31); MEAN CORPUSCULAR HGB CONC 34 % (32-36); MEAN CORPUSCULAR VOLUME 91 fL (79.0-98.0); MONOCYTES # (AUTO) 2.2 K/uL (0.0-1.0); MONOCYTES % (AUTO) 14.7 % (1.7-9.3); PLATELET COUNT (AUTO) 260 K/uL (130-430); RED BLOOD CELL COUNT(AUTO) 4.21 MIL/uL (4.2-6.2); RED CELL DISTRIBUTION WIDTH 13.9 % (9.0-15.0)
[2024-05-23 07:57] LABS: ALANINE AMINOTRANSFERASE 21 U/L (12-78); ALBUMIN 3.1 g/dL (3.4-4.8); ANION GAP 8 (5-15); ASPARTATE AMINOTRANSFERASE 23 U/L (10-37); CALCIUM 8.8 mg/dL (8.4-11.0); CARBON DIOXIDE 28 mmol/L (23-29); CHLORIDE 110 mmol/L (98-107); CREATININE 1.25 mg/dL (0.55-1.30); GLUCOSE 120 mg/dL (74-106); POTASSIUM 3.7 mmol/L (3.5-5.1); SODIUM SERUM 146 mmol/L (136-145); THYROID STIMULATING HORMONE 1.07 uIu/mL (0.34-4.82); TOTAL PROTEIN, SERUM 5.7 g/dL (6.4-8.3); UREA NITROGEN, BLOOD 24 mg/dL (8-21)
[2024-05-23] MEDS: ISOSORBIDE MONONITRATE 30 MG TAB.ER.24H PO SCH (08:51)
[2024-05-23] MEDS: amLODIPine BESYLATE 5 MG TABLET PO SCH (08:53)
[2024-05-23] MEDS: HYDROcodone/ACETAMIN 5-325 MG TAB (NORCO/ VICODIN) PO PRN (11:38)
[2024-05-23] MEDS: POLYETHYLENE GLYCOL 3350, 17 GM/ POWD.PACK PO ONE (13:54)
[2024-05-23] MEDS: VANCOMYCIN HCL 1,000 MG in NS 250 ML IV SCH (17:10)
[2024-05-24] VITALS (7 sets, daily range): BP systolic 117–178; PULSE 65–71; RESP 16–24; TEMP 97.3–97.8; O2SAT 94–99
[2024-05-24 07:19] LABS: BASOPHILS # (AUTO) 0.1 K/uL (0.0-0.2); BASOPHILS % (AUTO) 0.7 % (0.0-2.0); EOSINOPHILS # (AUTO) 0.3 K/uL (0.0-0.4); EOSINOPHILS % (AUTO) 2.6 % (0.0-4.0); HEMATOCRIT 36.7 % (36-54); HEMOGLOBIN 12.3 g/dL (14.0-18.0); LYMPHOCYTES # (AUTO) 1.8 K/uL (1.0-5.5); LYMPHOCYTES % (AUTO) 13.2 % (20.5-51.5); MEAN CORPUSCULAR HEMOGLOBIN 30 pg (27-31); MEAN CORPUSCULAR HGB CONC 33 % (32-36); MEAN CORPUSCULAR VOLUME 90 fL (79.0-98.0); MONOCYTES # (AUTO) 1.9 K/uL (0.0-1.0); MONOCYTES % (AUTO) 14.3 % (1.7-9.3); NEUTROPHILS # (AUTO) 9.3 K/uL (1.8-7.7); PLATELET COUNT (AUTO) 255 K/uL (130-430); RED BLOOD CELL COUNT(AUTO) 4.08 MIL/uL (4.2-6.2); RED CELL DISTRIBUTION WIDTH 13.6 % (9.0-15.0); WHITE BLOOD COUNT (AUTO) 13.4 K/uL (4.8-10.8)
[2024-05-24 07:40] LABS: ALANINE AMINOTRANSFERASE 20 U/L (12-78); ALBUMIN 3.1 g/dL (3.4-4.8); ANION GAP 8 (5-15); ASPARTATE AMINOTRANSFERASE 22 U/L (10-37); CALCIUM 8.7 mg/dL (8.4-11.0); CARBON DIOXIDE 29 mmol/L (23-29); CHLORIDE 109 mmol/L (98-107); CREATININE 1.29 mg/dL (0.55-1.30); GLUCOSE 126 mg/dL (74-106); POTASSIUM 3.5 mmol/L (3.5-5.1); SODIUM SERUM 146 mmol/L (136-145); TOTAL BILIRUBIN 0.9 mg/dL (0.0-1.0); TOTAL PROTEIN, SERUM 5.7 g/dL (6.4-8.3); UREA NITROGEN, BLOOD 32 mg/dL (8-21)
[2024-05-24 07:47] LABS: NEUTROPHILS % (AUTO) 69.2 % (40.0-70.0)
[2024-05-24] MEDS: POLYETHYLENE GLYCOL 3350, 17 GM/ POWD.PACK PO SCH (09:18)
[2024-05-25] VITALS (7 sets, daily range): BP systolic 121–161; PULSE 60–69; RESP 16–21; TEMP 96.7–97.8; O2SAT 94–97
[2024-05-25 07:25] LABS: ANION GAP 8 (5-15); CALCIUM 8.9 mg/dL (8.4-11.0); CARBON DIOXIDE 30 mmol/L (23-29); CHLORIDE 108 mmol/L (98-107); CREATININE 1.12 mg/dL (0.55-1.30); GLUCOSE 125 mg/dL (74-106); POTASSIUM 3.4 mmol/L (3.5-5.1); SODIUM SERUM 146 mmol/L (136-145); UREA NITROGEN, BLOOD 32 mg/dL (8-21)
[2024-05-25 07:26] LABS: BASOPHILS % (AUTO) 0.4 % (0.0-2.0); EOSINOPHILS # (AUTO) 0.2 K/uL (0.0-0.4); EOSINOPHILS % (AUTO) 2.2 % (0.0-4.0); HEMATOCRIT 36.1 % (36-54); HEMOGLOBIN 12.1 g/dL (14.0-18.0); LYMPHOCYTES # (AUTO) 1.2 K/uL (1.0-5.5); LYMPHOCYTES % (AUTO) 10.3 % (20.5-51.5); MEAN CORPUSCULAR HEMOGLOBIN 30 pg (27-31); MEAN CORPUSCULAR HGB CONC 34 % (32-36); MEAN CORPUSCULAR VOLUME 90 fL (79.0-98.0); MONOCYTES # (AUTO) 1.7 K/uL (0.0-1.0); MONOCYTES % (AUTO) 14.7 % (1.7-9.3); NEUTROPHILS # (AUTO) 8.2 K/uL (1.8-7.7); NEUTROPHILS % (AUTO) 72.4 % (40.0-70.0); PLATELET COUNT (AUTO) 250 K/uL (130-430); RED BLOOD CELL COUNT(AUTO) 4.02 MIL/uL (4.2-6.2); RED CELL DISTRIBUTION WIDTH 13.2 % (9.0-15.0); WHITE BLOOD COUNT (AUTO) 11.4 K/uL (4.8-10.8)
[2024-05-25] MEDS: amLODIPine BESYLATE 5 MG TABLET PO SCH (08:38)
[2024-05-25] MEDS ORDERED: AMLO5TAB92 PO (12:07)
[2024-05-25] MEDS ORDERED: SULF1TAB47 PO (12:07)
[2024-05-25] MEDS: KCL 20 mEq in 100 mL (PREMIX) 100 ML IV ONE (13:42)
== END 2024-05-25 16:00 | disposition home health service (06) | DRG 871 ==
LOC: SED 17:02 → STU 21:10
PROVIDERS: ADMIT Student in an Organized Health Care Education/Training Program; ATTEND Student in an Organized Health Care Education/Training Program
DX: A41.9 Sepsis, unspecified organism (principal); I50.33 Acute on chronic diastolic (congestive) heart failure; J18.9 Pneumonia, unspecified organism; J96.01 Acute respiratory failure with hypoxia; N39.0 Urinary tract infection, site not specified; E87.0 Hyperosmolality and hypernatremia; I47.19 Other supraventricular tachycardia; I48.0 Paroxysmal atrial fibrillation; I25.10 Atherosclerotic heart disease of native coronary artery without angina pectoris; N40.0 Benign prostatic hyperplasia without lower urinary tract symptoms; I16.0 Hypertensive urgency; E87.6 Hypokalemia; F03.90 Unspecified dementia, unspecified severity, without behavioral disturbance, psychotic disturbance, mood disturbance, and anxiety; E86.0 Dehydration; I11.0 Hypertensive heart disease with heart failure; R73.9 Hyperglycemia, unspecified; Z95.5 Presence of coronary angioplasty implant and graft; Z79.899 Other long term (current) drug therapy; Z79.82 Long term (current) use of aspirin; Z79.02 Long term (current) use of antithrombotics/antiplatelets; I25.2 Old myocardial infarction
CPT/HCPCS: 36415; 71045; 80048; 80053; 81000; 81001; 81015; 82948; 83037; 83605; 83735; 83880; 84443; 84484; 85007; 85025; 85027; 87040; 87086; 87186; 93005; 93306; 94070; 94640; 94760; 97110-GP; 97116-GP; 97530-GP; 99285; G0378; J0360; J0696; J1644; J1940; J2405; J3370; J3480; J3490; J7050; J7060